=== PATIENT | female | born 2005 | race Caucasian/White ===

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

== ENCOUNTER 2025-04-12 10:08 | Outpatient (CLI) | payer BC, OTHER, SELFPAY ==
[2025-04-12 16:26] LABS: Hematocrit 38.7 % (37.0-47.0); Hemoglobin 12.8 g/dL (12.2-16.2); Immature Granulocytes % 0.3 %; Mean Corpuscular HGB Conc 33.1 g/dL (31.8-35.4); Mean Corpuscular Hemoglobin 30.2 pg (27.0-31.2); Mean Corpuscular Volume 91.3 fl (81-99); Nucleated Red Blood Cells % 0 %; Platelet Count 225 K/mm3 (142-424); Red Blood Count 4.24 M/mm3 (4.20-5.40); Red Cell Distribution Width-SD 40.5 fL; White Blood Count 9.1 K/mm3 (4.5-13.0)
[2025-04-12 17:11] LABS: Alanine Aminotransferase 14 U/L (12-78); Albumin Level 4.8 g/dl (3.5-5.0); Albumin/Globulin Ratio 1.8 (1.1-1.8); Alkaline Phosphatase 74 U/L (38-126); Anion Gap 14.8 mEq/L (5-15); Aspartate Amino Transferase 25 U/L (14-36); Bilirubin,Total 0.8 mg/dl (0.2-1.3); Blood Urea Nitrogen 10 mg/dl (7-17); Calcium 9.9 mg/dl (8.4-10.2); Carbon Dioxide 21 mmol/L (22.0-30.0); Chloride 104 mmol/L (98-107); Cholesterol 180 mg/dl (140-200); Creatinine,Serum 0.70 mg/dl (0.52-1.04); Estimated Glomerular Filt Rate 108 ml/min (>60); GFR (African American) 130 ML/MIN (>60); Globulin 2.6 g/dL (1.3-3.2); Glucose 93 mg/dl (74-100); HDL Cholesterol 53 mg/dl (40-60); Potassium 4.8 mmoL/L (3.5-5.1); Sodium 135 mmol/L (136-145); Total Protein,Serum 7.4 g/dl (6.3-8.2); Triglycerides 65 mg/dl (30-150)
[2025-04-12 17:41] LABS: Thyroid Stimulating Hormone 0.99 uIU/mL (0.465-4.68)
[2025-04-12 18:06] LABS: Hepatitis C Ab Qual. W/ RFX NEGATIVE (Negative)
[2025-04-13 05:15] LABS: Hepatitis B Surface Antigen Negative (Negative)
--- OUTSIDE RECORDS SUMMARY | 2025-04-13 11:55 | XMS_ITS | Clinical Summary ---
Author Organization [facility] Address [address] [place] [address] Care Team Providers Care Structural Iron Worker Name Role Phone Provider, No Known Primary Care Provider Unavail able Allergies No known active allergies Medications Lo Loestrin Fe 1 MG-10 MCG / 10 MCG tablet Take 1 tablet by mouth Daily. 06/22/2023 Active Social History Tobacco Use Types Packs/Day Years Used Date Smoking Tobacco: Never Smokeless Tobacco: Never Tobacco Cessation:Counseling Given: Not Answered Alcohol Use Standard Drinks/Week Comments Never 0 (1 standard drink = 0.6 oz pur e alcohol) Abuse Screen Answer Date Recorded Unsafe at Home or Work/School Not on file Feels Threatened by Someone? Not on file Does Anyone Keep You from Co ntacting Others or Doint Things Outside the Home? Not on file 07/30/2023 Physical Sign of Abuse Present Not on file 1 09/29/2022 Housing Stability Answer Date Recorded Current Living Arrangements Not on file 07/15 Potentially Unsafe Housing Conditions Not on jaxon e 07/30/2023 Family and Community Support Answer Bandar e Recorded Help with Day-to-Day Activities Not on file 07/30/2023 Lonely or Isolated Not on file 07/30/2023 Employment Answer Date Recorded Do you want help finding or keeping work or a char b? Not on file 07/30/2023 Disabilities Answer Date Recorded Concentrating, Remembering, or Making Decisions Difficulty Not on file 07/30/2023 Doing Errands Independently Difficulty Not on fi le 07/30/2023 Education Answer Date Recorded Help with school or training? Not on file Preferred Language Not on file 07/30/2023 Comments No Sex and Gender Information Value Date Recorded Sex Assigned at Not on file Legal Sex Female 2:25 PM EST Gender Identity Not on file Sexual Orientation Not on file Last Filed Vital Signs Vital Sign Reading Time Taken Comments Blood Pressure 109/77 07/30/2023 2:48 PM EST Pulse 79 07/30/2023 2:48 PM EST Temperature 36.9 C (98.4 F) 07/30/2023 2:48 PM EST Respiratory Rate 20 07/30/2023 2:48 PM EST Oxygen Saturation 100% 07/30/2023 2:48 PM EST Inhaled Oxygen Concentration - - Weight 68 kg (150 lb) 07/30/2023 2:48 PM EST Height 160 cm (5' 3 ) 07/30/2023 2:48 PM EST Body Mass Index 26.57 07/30/2023 2:48 PM EST Body Mass Index Percentile 87.88% 07/30/2023 2:4 8 PM EST Growth Chart: CDC (Girls, 2- 20 Years) Plan of Treatment Health Maintenance Due Date Last Done Comments ANNUAL PHYSICAL 2005 HEPATITIS C SCREENING 2005 HPV VACCINES (2 - 2-dose series) 11/13/2016 05/16/20 16 MENINGOCOCCAL B VACCINE (1 o f 2 - Standard) 2021 COVID-19 Vaccine (1 - 2023-2 5 season) 2024 INFLUENZA VACCINE 06/14/2025 07/06/2020 TDAP/TD VACCINES (2 - Td or Tdap) 05/16/2026 016 Pneumococcal Vaccine 0-49 Completed 2005, 2005, 2005, Additional history exists MENINGOCOCCAL VACCINE Completed 04/07/2023, 016 Insurance [facility] PPO Member Subscriber Plan / Payer (Ef fective 2016-Present) Name:Astrid Ortiz Relation to Subscriber:Child Name:PETRONALALITO Date of :1973 Address: [address] [place] [id number] Payer ID:[id number] (NAIC) Type:Not on file Address: [address] Care Teams Structural Iron Worker Relationship Specialty Start Date End Date Provider, [place] [address] PCP - General 07/30/23
--- OUTSIDE RECORDS SUMMARY | 2025-04-13 11:55 | XMS_ITS | Clinical Summary ---
Author Organization Healthcare Address [address] [place] [address] Care Team Providers Care Enrollment Coordinator Name Role Phone Amadou Sanchez MD Primary Care Provider [phone] Family History Medical History Relation Name Comments Conversions - Other Sister patent d uctus arteriosus Relation Name Status Comments Sister Social History Tobacco Use Types Packs/Day Years Used Date Smoking Tobacco: Never Comments Unknown Sex and Gender Information Value Date Recorded Sex Assigned at Not on file Legal Sex Female 8:50 PM EDT Gender Identity Not on file Sexual Orientation Not on file Last Filed Vital Signs Vital Sign Reading Time Taken Comments Blood Pressure - - Pulse - - Temperature - - Respiratory Rate - - Oxygen Saturation - - Inhaled Oxygen Concentration - - Weight 28.4 kg (62 lb 9.4 oz) 11:48 AM EDT Height 128.3 cm (4' 2.5 ) 02/12/2015 11 :48 AM EDT Body Mass Index 17.26 02/12/2015 11:48 AM EDT Body Mass Index Percentile 59.47% 02/12 11:48 AM EDT Growth Chart: CDC (Girls, 2- 20 Years) Plan of Treatment Not on file Care Teams Enrollment Coordinator Relationship Specialty Start Date End Date Amadou Sanchez MD [facility] [address] [place] [address] PCP - General 01/25/21
== END 2025-04-12 23:59 | disposition home or self-care (01) ==
LOC: LAB.DROPOF 04-13 11:50
PROVIDERS: PCP Family Medicine; Visit Provider Family Medicine
DX: E78.00 Pure hypercholesterolemia, unspecified (principal); Z11.59 Encounter for screening for other viral diseases; Z11.4 Encounter for screening for human immunodeficiency virus [HIV]
CPT/HCPCS: 80053; 80061; 84443; 85025; 86803; 87340; 87389